=== PATIENT | female | born 1965 | race Caucasian/White ===

== ENCOUNTER 2017-11-18 05:34 | Day surgery (SDC) | payer OTHER ==
[~2017-11-18] VITALS: Ht 160 cm; Wt 77.1 kg
[2017-11-18] MEDS ORDERED: LIDOCAINE MPF 1% - 5 mL VIAL 10 ML ONE (08:36)
[2017-11-18] MEDS ORDERED: fentaNYL 0.05 MG/ML VIAL ONE (08:38)
[2017-11-18] MEDS ORDERED: MIDAZOLAM 2 MG/2 ML VIAL ONE ×2 (08:39→08:43)
[2017-11-18] MEDS ORDERED: HYDROmorphone 1 MG/ML AMP IVP PRN (09:20)
[2017-11-18] MEDS ORDERED: MORPHINE SULFATE 4 MG/ML SYR IV PRN (09:20)
[2017-11-18] MEDS ORDERED: MORPHINE SULFATE 2 MG/ML SYR IVP PRN (09:20)
[2017-11-18] MEDS ORDERED: HYDROcodone/APAP 5/325 MG 1 TAB TAB PO PRN (09:20)
[2017-11-18] MEDS ORDERED: ONDANSETRON 4 MG/2 ML VIAL IV PRN (09:20)
[2017-11-18] MEDS: MIDAZOLAM 2 MG/2 ML VIAL IVP ONE (12:35)
[2017-11-18] MEDS: fentaNYL 0.05 MG/ML VIAL IVP ONE (12:35)
[2017-11-18] MEDS: BUPIVACAINE-MPF 0.5% 30 ML VIAL INJ ONE (12:36)
== END 2017-11-18 10:40 | disposition home or self-care (01) ==
LOC: MDS 05:34 → MMU 05:57 → MDS 10:40
PROVIDERS: ATTEND Surgery
DX: L91.8 Other hypertrophic disorders of the skin (principal); Z90.49 Acquired absence of other specified parts of digestive tract; Z90.710 Acquired absence of both cervix and uterus
CPT/HCPCS: 11200; J2001; J2250; J3010; J3490; J7120